=== PATIENT | female | born 1935 | race Caucasian/White ===

== ENCOUNTER → 2018-11-05 | Outpatient (CLI) | payer MEDICARE, BC ==
[~2018-11-05] MED LIST: ASPI-225 PO; COUM2.5T17 PO; K-TA10TA2 PO; LOSA50TA5 PO; MULTCAP PO; OMEP20CA3 PO; PERC5TAB12 PO; REST0.05 OP; TYLE325T5 PO
--- NOTE | 2018-11-05 09:20 | REPMRS ---
Patient History The patient states she had a clinical breast exam in 11/14 Family history of breast cancer at age 50 or over in sister. Benign core biopsy of the right breast, 2006. Digital Woman Screen Mammo: November 05, 2018 - Exam #: [id number] Bilateral CC and MLO view(s) were taken. Technologist: Roxy Foster, Technologist Prior study comparison: August 08, 2017, digital woman screen mammo performed at [facility]. July 05, 2016, digital woman screen mammo performed at [facility]. July 04, 2015, digital woman screen mammo performed at [facility]. FINDINGS: There are scattered fibroglandular densities. There are several stable benign nodules bilaterally. There is a 7 mm nodule in the left breast at the 12 o'clock position which appears larger today than on previous mammography. This merits further evaluation. There has been no other change in the appearance of the mammogram from the prior studies. There is a mild amount of scattered fibroglandular density which is fairly symmetric. There is no other interval development of dominant mass, architectural distortion, or clustered microcalcification suggestive of malignancy. 3-D tomosynthesis shows no additional findings. Assessment: BI-RADS/ACR category 0 mammogram, incomplete. BIRADS/ACR category zero mammogram, incomplete. Additional imaging and/or prior images needed. Recommendation Ultrasound and special view mammogram of the left breast. This patient's Lifetime Breast Cancer RIsk is estimated at 2.0 %. This mammogram was interpreted with the aid of an FDA-approved computer-aided dectection system. Electronically Signed By: Sinan Cope MD 11/05/18 [id number]
== END ==
LOC: M WHC 08:06
PROVIDERS: ATTEND Nurse Practitioner Family
DX: Z01.419 Encounter for gynecological examination (general) (routine) without abnormal findings (principal); Z12.31 Encounter for screening mammogram for malignant neoplasm of breast; N63.20 Unspecified lump in the left breast, unspecified quadrant; Z80.3 Family history of malignant neoplasm of breast; Z86.018 Personal history of other benign neoplasm
CPT/HCPCS: 77063; 77067; G0101

== ENCOUNTER → 2018-11-10 | Outpatient (CLI) | payer MEDICARE, BC ==
--- NOTE | 2018-11-10 17:38 | REP ---
Digital diagnostic unilateral left breast mammography with CAD and focused left breast sonography: History: Screening mammography from 11/05/2018 was BIRADS category zero because of a possible enlarging nodule at 12 o'clock in the left breast. Diagnostic imaging was recommended. Comparison is also made with prior mammography from August 08, 2017 and July 05, 2016. Mammographic findings: Magnified focal spot compression CC, MLO, and true MLO views confirm the presence of a nodule. It is well circumscribed. On diagnostic mammographically magnified focal spot images, the nodule measures 6 mm. This is its dimension on July 2017 and June 2016. Thus there is no evidence that it has enlarged. No other mammographic abnormality is seen. There is a benign stable nodule inferiorly at approximately 6-7 o'clock which is also unchanged. Sonographic findings: Focused left breast sonography is performed from 12 o'clock to 3 o'clock. At 12 o'clock there is a hypoechoic benign appearing nodule 5 x 5 x 4 mm located 5.7 cm from the nipple. This may correspond to the mammographic opacity. Impression: Today's diagnostic imaging demonstrates that the nodule is in fact stable and therefore felt to be benign. BIRADS category II benign findings. Repeat screening mammography recommended bilaterally in 1 year. This mammogram was interpreted with the aid of an FDA-approved computer-aided detection system. The patient states she had a clinical breast exam in October 2018. The patient letter being requested is M1. Electronically Signed by Nathaniel Cope MD 11/10/2018 06:17 P
== END ==
LOC: M RAD 11:20
PROVIDERS: ATTEND Nurse Practitioner Family
DX: N63.0 Unspecified lump in unspecified breast (principal)

== ENCOUNTER → 2019-11-08 | Outpatient (CLI) | payer MEDICARE, BC ==
[~2019-11-08] MED LIST changes: -ASPI-225 PO; +ASPI81TA78 PO; +OMEP1CAP73 PO; -OMEP20CA3 PO
--- NOTE | 2019-11-08 09:35 | REPMRS ---
Patient History The patient states she had a clinical breast exam in October 2019.Family history of breast cancer at age 50 or over in sister. Benign core biopsy of the right breast, 2007. Digital Woman Screen Mammo: November 08, 2019 - Exam #: [id number] Bilateral CC and MLO view(s) were taken. Technologist: Vianey Carrera, Technologist Prior study comparison: November 10, 2018, left breast digital mammo diagnostic unilateral, performed at [facility]. November 05, 2018, bilateral digital woman screen mammo performed at [facility]. August 08, 2017, digital woman screen mammo performed at [facility]. July 05, 2016, digital woman screen mammo performed at [facility]. July 04, 2015, digital woman screen mammo performed at [facility]. July 01, 2014, digital woman screen mammo performed at [facility]. FINDINGS: There are scattered fibroglandular densities. There are stable nodular densities projecting bilaterally unchanged from multiple prior studies. In the left breast, at approximately the 12/01 o'clock position, there is a 7-8 mm nodule adjacent to some fibroglandular tissue. This may have enlarged since the prior study in short axis dimension. It merits further evaluation. There has been no other change in the appearance of the mammogram from the prior studies. There is a mild amount of scattered fibroglandular density which is fairly symmetric. There is no other interval development of dominant mass, architectural distortion, or grouped microcalcification suggestive of malignancy. 3-D tomosynthesis shows no additional findings. Assessment: BI-RADS/ACR category 0 mammogram, Incomplete: Need additional imaging evaluation and/or prior mammograms for comparison. Recommendation Ultrasound and special view mammogram of the left breast (for women over age 40). This patient's Lifetime Breast Cancer Risk is estimated at 1.5 %. This mammogram was interpreted with the aid of an FDA-approved computer-aided dectection system. Electronically Signed By: Sinan Cope MD 11/08/19 0934
== END ==
LOC: M WHC 08:28
PROVIDERS: ATTEND Nurse Practitioner Family
DX: Z12.31 Encounter for screening mammogram for malignant neoplasm of breast (principal); Z80.3 Family history of malignant neoplasm of breast; Z86.018 Personal history of other benign neoplasm; N63.21 Unspecified lump in the left breast, upper outer quadrant
CPT/HCPCS: 77063; 77067; G0463

== ENCOUNTER → 2019-11-15 | Outpatient (CLI) | payer MEDICARE, BC ==
--- NOTE | 2019-11-15 16:41 | REP ---
Digital diagnostic unilateral left breast mammography with CAD and focused left breast sonography: History: Screening mammography from November 08, 2019 was BIRADS category zero because of a 7 mm nodular opacity in the upper outer quadrant. Diagnostic imaging was recommended. Comparison is made with 11/10/2018 and 11/05/2018 prior studies as well as more remote prior exams from 2014 and 2016. Mammographic findings: Magnified focal spot compression images demonstrate a well-circumscribed oval-shaped nodular opacity in the upper outer quadrant of the left breast. This measures 7 millimeters in greatest diameter. This corresponds to the nodular density seen on 11/05/2018. Sonographic findings: At 12 o'clock in the left breast there is a oval-shaped lesion with internal echoes measuring 6.5 x 5.1 x 4.1 mm today. This measured 5 mm previously. A somewhat micronodular margins. Impression: BIRADS category four suspicious left breast imaging. Ultrasound-guided needle biopsy with marker clip placement and post clip placement mammography recommended. BIRADS 4: BI-RADS/ACR category 4 mammogram. Suspicious Abnormality - biopsy should be considered. This mammogram was interpreted with the aid of an FDA-approved computer-aided detection system. The patient states she had a clinical breast exam in October 2019 The patient letter being requested is m4. Electronically Signed by Nathaniel Cope MD 11/15/2019 07:51 P
== END ==
LOC: M RAD 12:56
PROVIDERS: ATTEND Nurse Practitioner Family
DX: Z12.31 Encounter for screening mammogram for malignant neoplasm of breast (principal); N64.89 Other specified disorders of breast

== ENCOUNTER → 2019-12-10 | Outpatient (CLI) | payer MEDICARE, BC ==
[~2019-12-10] MED LIST changes: +METF500T13 PO
[2019-12-10 11:19] VITALS: BP 158/88
--- NOTE | 2019-12-10 12:27 | REP ---
Digital diagnostic unilateral left breast mammography: Two views with CAD. History: Marker clip placement views. The patient is status post ultrasound-guided needle biopsy procedure. Comparison mammography November 15, 2019 and accompanying ultrasound showed a nodule. Mammographic findings: Craniocaudal and true mediolateral views of the left breast demonstrate a needle biopsy marker clip in the upper outer quadrant of the left breast at the site where recent mammography showed a nodular opacity. The nodular opacity is no longer seen. Impression: Marker clip in good position. This mammogram was interpreted with the aid of an FDA-approved computer-aided detection system.
--- NOTE | 2019-12-10 14:09 | REP ---
ULTRASOUND GUIDANCE LEFT BREAST: HISTORY: Ultrasound-guided left breast biopsy. FINDINGS: Sonographic guidance is provided to Dr. Gillespie who performed ultrasound-guided needle biopsy procedure.
--- NOTE | 2019-12-11 20:34 | ROOPDOC ---
[facility] Report Of Operation Report of Operation DATE OF PROCEDURE: 12/10/19 PREPROCEDURE DIAGNOSES: left breast mass POSTPROCEDURE DIAGNOSES: left breast mass PROCEDURE: ultrasound guided left breast biopsy with clip placement SURGEON: Gaye Hanna CLOTH DESIZING RANGE OPERATOR CHIEF: ANESTHESIA: local ESTIMATED BLOOD LOSS: Approximately 1 mL. COMPLICATIONS: none REMARKS: clip found in the left breast at the expected position DESCRIPTION OF PROCEDURE: Lidocaine 1% LOT [id number] Expiration February 2023 Sodium Bicarbonate 8.4% LOT [id number] Expiration June 2021 Hydromark clip LOT [id number] Expiration April 2022 REF 4009-12-11-T4 titanium Shape 4 ( closed coil) Bx device: BARD [id number] x10 cm LOT [id number] Expiration July 2022 REF MQ [id number] Informed consent was obtained in the preop area. The most common risk and possible complications including bleeding, hematoma, bruising, infection, injury to surrounding structures were explained to the patient and she expressed u nderstanding. Patient was taken to the procedure room and placed on the bed in the supine position with the left upper extremity placed above the head. Appropriate time out was done stating patients name, date of , and the procedure to be performed. The left breast was prepped and draped in the usual fashion. The ultrasound was used to confirm the location of the lesion in the left breast at 12:00. Plain Lidocaine 1% and 8.4% sodium bicarbonate 10:1 mix was used to numb the skin, the biopsy site and tissues along the anticipated biopsy tract. Small skin incision was made with blade number 11. BARD Marquee 14G cannula with i ntroducer ([id number]) was inserted through the incision and advanced under the ultrasound guidance to position immediately adjacent to the lesion. Next, the introducer was removed and BARD Marquee 14G biopsy device was places in the cannula. Pre-biopsy imaging, and post-biopsy imaging were captured. Five good core biopsies were taken at various levels of the lesion. Next, the biopsy device was withdrawn and a clip introducer was inserted into the biopsy site via the cannula. The Hydromark clip was deployed under direct vision. Post-clip placement image was captured. Manual pressure over the biopsy cavity and tract was held after the clip introducer was withdrawn. No bleeding was noted upon removal of the pressure. Post-biopsy mammogram of the left breast was obtained and showed clip in expected position. Postprocedural dressing was placed. Patient tolerated procedure well and was taken to the recovery unit in stable condition. Discharge instructions were discussed with the patient and she expressed understanding. GAYE HANNA DO Dec 11, 2019 20:33
== END ==
LOC: M WHCPRO 09:59
PROVIDERS: ATTEND Surgery
DX: D05.12 Intraductal carcinoma in situ of left breast (principal)

== ENCOUNTER → 2019-12-20 | Outpatient (CLI) | payer MEDICARE, BC ==
[2019-12-20 12:11] LABS: BLOOD UREA NITROGEN 14 MG/DL (7-18); CALCIUM LEVEL 9.9 MG/DL (8.8-10.2); CARBON DIOXIDE LEVEL 34 MEQ/L (21-32); CHLORIDE LEVEL 101 MEQ/L (98-107); CREATININE FOR GFR 0.84 MG/DL (0.55-1.30); GLOMERULAR FILTRATION RATE > 60.0 (>32); GLUCOSE, FASTING 128 MG/DL (70-100); SODIUM LEVEL 139 MEQ/L (136-145)
== END ==
LOC: M PLALAB 08:28
PROVIDERS: ATTEND Surgery
DX: C50.912 Malignant neoplasm of unspecified site of left female breast (principal)

== ENCOUNTER → 2019-12-24 | Outpatient (CLI) | payer MEDICARE, BC ==
[~2019-12-24] MED LIST changes: +PROHANCE 279.3MG/ML 15ML VIAL (A9576) As Ordered ONE
--- NOTE | 2019-12-24 18:39 | REP ---
MRI BILATERAL BREASTS WITH AND WITHOUT CONTRAST: HISTORY: Left infiltrating ductal carcinoma. Biopsy performed 12/10/2019. COMPARISON: Mammogram 11/08/2019, 11/15/2019 and ultrasound 11/15/2019. Multiple sequence were obtained in the axial, coronal and sagittal planes prior to and following the intravenous administration of 15 mL ProHance. Images are evaluated in the TargetX software including dynamic post gadolinium axial T1 FS images, subtraction images, CAD images, color overlay images and MIP reconstruction images. Mild fibroglandular tissue is seen bilaterally. There is mild background parenchymal enhancement. There is no axillary adenopathy. There is a cyst in the lower outer right breast which is oval in shape measuring about 1.3 cm in maximum diameter. In the upper outer quadrant of the right breast, anteriorly, there is a hyperintense nodule 1.5 cm in diameter which demonstrates mild persistent enhancement and appears to represent a fibroadenoma. There are nonenhancing internal septations. In the left breast the biopsy clip from the recent biopsy is visualized with mild amount of adjacent post biopsy fluid. At that location, there is focal suspicious washout type enhancement, with a nodular focus of enhancement measuring approximately 6 to 7 mm in diameter. No other suspicious area of enhancement is seen. There is no other suspicious enhancing mass or morphologic abnormality. Subcentimeter hyperintense focus in the left dome of the liver probably represents a small cyst. IMPRESSION: BI-RADS category 6 known left breast cancer. In the upper left breast at the site of the recent ultrasound guided biopsy there is focal suspicious enhancement having a diameter of 6 mm with an adjacent biopsy clip. There is also mild surrounding post biopsy fluid. The lesion is located approximately 6 cm from the nipple. No axillary adenopathy. In the right breast, there is a benign cyst and fibroadenoma identified as discussed above. Electronically Signed by Yordan Chinchilla MD 12/24/2019 07:16 P
== END ==
LOC: M RAD 14:16
PROVIDERS: ATTEND Surgery
DX: C50.212 Malignant neoplasm of upper-inner quadrant of left female breast (principal)
CPT/HCPCS: A9576; C8908

== ENCOUNTER → 2019-12-31 | Outpatient (CLI) | payer MEDICARE, BC ==
[~2019-12-31] MED LIST changes: +METF750T36 PO; -PROHANCE 279.3MG/ML 15ML VIAL (A9576) As Ordered ONE; +VITA500079 PO
== END ==
LOC: M PLALAB 09:07
PROVIDERS: ATTEND Surgery
DX: Z13.79 Encounter for other screening for genetic and chromosomal anomalies (principal)

== ENCOUNTER → 2020-01-06 | Outpatient (CLI) | payer MEDICARE, BC ==
[~2020-01-06] MED LIST changes: +TRAM50TA2 PO
--- NOTE | 2020-01-06 12:58 | REP ---
PA and lateral chest: Comparison is 03/02/2015. The lung lal are clear. The cardiac size is normal. The enrique, mediastinum, and skeletal structures are unremarkable. There are surgical clips in the abdominal right upper quadrant, unchanged. Impression: Negative PA and lateral chest. There is no interval change. Electronically Signed by Yordan Cuellar MD 01/06/2020 12:49 P
== END ==
LOC: M WUC 11:15
PROVIDERS: ATTEND Internal Medicine
DX: Z85.3 Personal history of malignant neoplasm of breast (principal)

== ENCOUNTER 2020-01-10 08:41 | Day surgery (SDC) | payer MEDICARE, BC ==
[~2020-01-10] VITALS: Ht 149.9 cm; Wt 79.4 kg
[~2020-01-10 08:41] MED LIST changes: +HEPARIN SOD (PORCINE) 5000 UNITS/ML VIAL (J1644 PER 1000UNITS) SQ ONE; +LIDOCAINE 1% MDV 20ML VIAL SQ PRN; +LIDOCAINE 2% INJ 100 MG/5 ML SDV (FOR ANES.) As Ordered ONE; +LIDOCAINE 5% (LIDODERM) PATCH TD ONE; +LR 1,000 ML IV ONE; +MIDAZOLAM INJ 2 MG/2 ML VIAL (J2250) As Ordered ONE; +ROCURONIUM BROMIDE 50 MG/5 ML VIAL As Ordered ONE; -TRAM50TA2 PO; +ceFAZolin SOD 2 GM in IV 1 EA IV ONE; +fentaNYL 100 MCG/2 ML INJECTION (J3010) As Ordered ONE; +propofoL 200 MG/20 ML VIAL As Ordered ONE
[2020-01-10] MEDS ORDERED: BUPIVACAINE HCL 0.25% 30 ML VIAL As Ordered ONE (08:46)
[2020-01-10] MEDS ORDERED: LIDOCAINE 1% SDV INJ 30 ML VIAL As Ordered ONE (08:46)
[2020-01-10] MEDS ORDERED: METHYLENE BLUE 0.5% (5MG/ML) 10 ML AMP (PROVAYBLUE)(Q9968 PER 1MG) As Ordered ONE (12:22)
[2020-01-10] MEDS ORDERED: SCOPOLAMINE 1MG TRANSDERMAL PATCH TOP ONE (12:30)
[2020-01-10] MEDS ORDERED: ONDANSETRON 4MG/2ML VIAL (J2405) As Ordered ONE (13:28)
[2020-01-10] MEDS ORDERED: METOCLOPRAMIDE INJ 10MG/2ML VIAL (J2765) As Ordered ONE (13:28)
[2020-01-10] MEDS ORDERED: KETOROLAC 60 MG/2 ML VIAL (J1885) As Ordered ONE (13:28)
[2020-01-10] MEDS ORDERED: ACETAMINOPHEN 1000MG 100ML IV BTL (OFIRMEV) (J0131 PER 10MG) As Ordered ONE (13:29)
[2020-01-10] MEDS ORDERED: SUGAMMADEX SODIUM 500 MG/5 ML VIAL (BRIDION) As Ordered ONE (13:30)
--- NOTE | 2020-01-10 13:46 | REP ---
Breast ultrasound: Left sided sonographic guidance. History: Needle localization. Left breast malignancy. Findings: Sonographic guidance is provided to Dr. Geneva sung performed ultrasound-guided needle localization procedure. Electronically Signed by Nathaniel Cope MD 01/10/2020 01:37 P
[2020-01-10] MEDS ORDERED: fentaNYL 100 MCG/2 ML INJECTION (J3010) As Ordered ONE (14:07)
[2020-01-10] MEDS ORDERED: HYDROmorphone HCL 2 MG/ML 1ML VIAL (J1170) As Ordered ONE (15:01)
[2020-01-10] MEDS ORDERED: PHENYLephrine HCL 500 MCG/5 ML (100MCG/ML) SYRINGE (J2370) As Ordered ONE (15:13)
[2020-01-10] MEDS ORDERED: TRAM50TA2 PO (16:43)
[2020-01-10] MEDS ORDERED: ONDANSETRON 4MG/2ML VIAL (J2405) IV PRN (17:00)
[2020-01-10] MEDS ORDERED: LR 1,000 ML IV SCH (17:00)
[2020-01-10] MEDS ORDERED: fentaNYL 100 MCG/2 ML INJECTION (J3010) IV PRN (17:00)
--- NOTE | 2020-01-10 18:14 | REP ---
LEFT BREAST LYMPHOSCINTIGRAPHY The procedure was performed under the direct supervision of Dr. Chinchilla. The images were reviewed with Dr. Chinchilla. The risks and benefits of the procedure were explained to the patient and informed consent was obtained. Using topical anesthetic and sterile technique 1.018 mCi of technetium 99 filtered sulfur colloid was injected subdermally and eight fractionated periareolar injections. Images obtained 1 hour after injection demonstrate dominant left axillary focus with a smaller adjacent focus more medially. Impression: Left breast lymphoscintigraphy. Dominant left axillary focus with a smaller adjacent focus more medially. Electronically Signed by ANA Sandoval 01/10/2020 05:37 P Electronically Signed by Yordan Chinchilla MD 01/10/2020 06:05 P
[2020-01-10 18:15] VITALS: BP 133/67
--- NOTE | 2020-01-10 21:41 | ROOPDOC ---
[facility] Report Of Operation Report of Operation DATE OF PROCEDURE: 01/10/20 PREPROCEDURE DIAGNOSES: Left breast cancer POSTPROCEDURE DIAGNOSES: Left breast cancer PROCEDURE: Left lumpectomy with Intra-Op wire placement and left sentinel lymph node biopsy SURGEON: Gaye Gillespie MILK COLLECTOR: ANESTHESIA: General ESTIMATED BLOOD LOSS: Approximately 10 mL. COMPLICATIONS: None REMARKS: The wire and the hydro-marked clip are visible in the specimen DESCRIPTION OF PROCEDURE: INDICATIONS: Ms. Driscoll is a 84-year-old woman who was found to have suspicious mass on screening left breast mammogram. This was evaluated with US and sonographic correlate was found. 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 She opted for breast conservative surgery with sentinel lymph node biopsy on the left. She was medically cleared for surgery by her primary care doctor. Risks and possible complications of surgical procedure including bleeding, infection and injury to surrounding structures were explained to the patient and she wished to proceed. Consent was signed. My initials were placed on the operative site (left). Since patient has an active diagnosis of cancer, subcutaneous injection of 5000 units of heparin was done in Preop. The injection of radioactive tracer were done in radiology department preoperatively. Lymphoscintigraphy imaging was reviewed in preop. DETAILS: Patient was taken to the operating room and placed on the operating room table. A sign in was called stating patients name, date of and the procedure to be done. Preoperative antibiotics were infused. Smooth induction of general anesthesia was done. Patients hands were extended on arm rests. Care was taken not to over extend the arms. Procedure was started with left breast intraop wire localization. Appropriate time out was done and patients name, date of , and the procedure to be done were confirmed. Left breast was cleaned by me. Intraoperative ultrasound was used again to confirm location of the Hydromark clip. Location of the clip was marked on the skin as well. 21 G Kopans Breast Lesion Localization Needle was used to place 25 cm wire through the lesion. The wire was placed through the clip and the end of the wire was passed a centimeter deep. The images were captured confirming adequate placement of the localizing wire. Audit Senior Associate assisted with the wire placement. Next, patients left breast and axilla were prepped and draped in the usual fashion. Care was taken not to displace the wire. Appropriate time out was done again prior second part of the procedure. Patients name, date of , and the procedure to be done were confirmed. Procedure was started with sentinel lymph node biopsy. Neoprobe was used to locate area of maximum intensity of the signal. Local anesthetic using 1% lidocaine and 0.25 % Marcaine 50/50 mix was injected. An incision was made with scalpel number 15 at the inferior aspect of axillary hair line in the left axilla where the maximum signal was identified. The sharp and blunt dissection was continued through the subcutaneous adipose tissue. Clavipectoral fascia was opened. Neoprobe was used to guide the dissection. First sentinel lymph node was identified and excised. The ex-vivo 10 second count was 4627. There was another node associated with the first sentinel lymph node. This node did not have any signal. It was called a nonsentinel, palpable left axillary lymph node. Second sentinel lymph node was identified and excised as well. The ex- vivo 10 second count was [id number]. The specimens were labeled with patients name and sent to pathology. No additional lymph nodes with high radioactive signal were identified. The 10 second count of the background was 117. Adequate hemostasis was assured. Additional local anesthetic was injected into surrounding tissues. Wound was irrigated. Clavipectoral fascia was closed with 3-0 Vicryl interrupted suture. Dermal layer was closed at the end of the case with 3-0 Monocryl and skin was closed with 4-0 Monocryl. Next, our attention was turned toward the left breast. Local anesthetic using 1% lidocaine and 0.25 % Marcaine 50/50 mix was injected at the site of planned superolateral periareolar incision. The incision was made with the scalpel. Subcutaneous skin flaps were raised and the guide wire was carefully pulled into the wound. Dissection was carries along the wire until the previously marked on the skin area of target lesion location was encountered. At this point, wider excision of the tissue surrounding the wire was done. The Hydromark clip was identified in the tissue with intraoperative hockey stick ultrasound probe. The end of the wire was identified with palpation. The lumpectomy specimen was carefully removed from the breast keeping its proper orientation and moved to the back table where margins were marked with the surgical inking kit following the standard colors recommendations. Specimen was then placed on the grid and placed in [employer] Specimen Imaging System. The image revealed the wire and the Hydromark in the specimen. The specimen was labeled with patients name and left lumpectomy and sent to pathology. At this time radiology department was called to aid with evaluation of excised specimen. No additional excision was recommended. Next, six additional margins were taken: deep, inferior, superior, medial, anterior and lateral. All new margins, defined as margin farthest away from lumpectomy cavity, were marked with black ink. Each margin was sent as a separate specimen with appropriate labeling. Adequate hemostasis was assured. Additional local anesthetic was injected into surrounding tissues. Clips were placed to veronica the cavity. space was approximated with 3-0 Vicryl. The dermis was closed with 3-0 Monocryl and skin was closed with 4-0 Monocryl. Steri strips were placed over the incision. Patient emerged from the anesthesia without any problems. Fluffs were placed over the operative site and patients chest was wrapped snuggly in the MEEK wrap. Sponge and instrument counts were done and were correct. Patient tolerated procedure well and was taken to recovery unit in stable condition. GAYE GILLESPIE DO Jan 10, 2020 21:41
--- NOTE | 2020-01-11 09:59 | REP ---
SPECIMEN RADIOGRAPHY LEFT BREAST: Eight views. Comparison mammography December 10, 2019. FINDINGS: Specimen radiography demonstrates the needle wire localization device immediately adjacent to the HydroMARK biopsy marker clip placed and previously seen at the site of recently biopsied soft tissue nodule. On one of the views, a 14 mm nodular density is seen which may correspond to the nodule itself. This is difficult to say with confidence on specimen radiography. The marker clip was immediately adjacent to the nodule on the December 10, 2019 mammography. IMPRESSION: Findings consistent with successful excision. Electronically Signed by Nathaniel Cope MD 01/11/2020 10:01 A
== END 2020-01-10 18:20 | disposition home or self-care (01) ==
LOC: M SDC 08:41
PROVIDERS: ATTEND Surgery
DX: C50.912 Malignant neoplasm of unspecified site of left female breast (principal); Z17.0 Estrogen receptor positive status [ER+]; E11.9 Type 2 diabetes mellitus without complications; Z79.84 Long term (current) use of oral hypoglycemic drugs; I10 Essential (primary) hypertension; M81.0 Age-related osteoporosis without current pathological fracture; Z79.899 Other long term (current) drug therapy; Z87.891 Personal history of nicotine dependence; E78.00 Pure hypercholesterolemia, unspecified; E66.9 Obesity, unspecified; K21.9 Gastro-esophageal reflux disease without esophagitis; M85.80 Other specified disorders of bone density and structure, unspecified site
CPT/HCPCS: 19125; 36415; 38525; 76098; 76942; 78195; 86850; 86900; 86901; 88305; 88307; A9541; J0131; J0690; J1170; J1644; J2250; J2370; J2405; J2765; J3010

== ENCOUNTER → 2020-04-27 | Outpatient (CLI) | payer MEDICARE, BC ==
[~2020-04-27] MED LIST changes: -HEPARIN SOD (PORCINE) 5000 UNITS/ML VIAL (J1644 PER 1000UNITS) SQ ONE; +LETR2.5T2 PO; -LIDOCAINE 1% MDV 20ML VIAL SQ PRN; -LIDOCAINE 2% INJ 100 MG/5 ML SDV (FOR ANES.) As Ordered ONE; -LIDOCAINE 5% (LIDODERM) PATCH TD ONE; -LR 1,000 ML IV ONE; -MIDAZOLAM INJ 2 MG/2 ML VIAL (J2250) As Ordered ONE; -ROCURONIUM BROMIDE 50 MG/5 ML VIAL As Ordered ONE; +TRAM50TA2 PO; -ceFAZolin SOD 2 GM in IV 1 EA IV ONE; -fentaNYL 100 MCG/2 ML INJECTION (J3010) As Ordered ONE; -propofoL 200 MG/20 ML VIAL As Ordered ONE
--- NOTE | 2020-05-02 11:33 | DEXA ---
AP SPINE L1 - L4 1.190 0.0 1.8 LT FEMUR TOTAL 0.838 -1.3 0.8 LT NECK 0.725 -2.3 0.0 RT FEMUR TOTAL 0.868 -1.1 1.0 RT NECK 0.816 -1.6 0.7 TOTAL BODY TOTAL OTHER COMMENTS: Normal bone densitometry of the spine. There is low bone density of the hips. The increased density of the spine does not represent a significant change. The decreased density of the left hip does represent a significant change. The decreased density of the right hip does not represent a significant change. The density of the spine has increased 8.0% since the initial exam on 02/21/2003. The increased 1.2% since the most recent exam on 07/05/2016. The density of the left hip has decreased 11.9% since initial exam on 02/21/2003. The density of the left hip has decreased 3.1% since the most recent exam on 07/05/2016. The density of the right hip has decreased 5.2% since the initial exam on 02/21/2003. The density of the right hip has decreased 1.1% since the most recent exam on 07/05/2016. FOLLOW-UP: Recommendation for the next bone density exam: 2 years. REHAN
== END ==
LOC: M WHC 10:45
PROVIDERS: ATTEND Internal Medicine Medical Oncology
DX: C50.919 Malignant neoplasm of unspecified site of unspecified female breast (principal); M85.851 Other specified disorders of bone density and structure, right thigh; M85.852 Other specified disorders of bone density and structure, left thigh

== ENCOUNTER → 2020-07-26 | Outpatient (RCR) | payer MEDICARE, BC | END | disposition home or self-care (01) | LOC: M PT 07-20 08:08 | PROVIDERS: ATTEND Surgery | DX: M25.569 Pain in unspecified knee (principal) ==

== ENCOUNTER 2020-08-02 12:31 | Outpatient (RCR) | payer MEDICARE, BC | END 2020-08-26 | LOC: M PT 12:31 | PROVIDERS: ATTEND Surgery | DX: I89.0 Lymphedema, not elsewhere classified (principal) ==

== ENCOUNTER → 2020-11-15 | Outpatient (CLI) | payer MEDICARE, BC ==
[~2020-11-15] MED LIST changes: +ATOR1TAB19 PO; +CALC500C16 PO; +D3400CAP PO; +EYEDRO5 OU; +FOSA70TA PO; +HYDR12.55 PO
--- NOTE | 2020-11-15 09:52 | REPMRS ---
Patient History The patient states she had a clinical breast exam in 10/2020 Family history of breast cancer at age 50 or over in sister. Malignant radio exam breast specimen of the left breast, January 10, 2020. Malignant US guided breast biopsy. of the left breast, December 10, 2019. Benign core biopsy of the right breast, 2006. 3D TOMOSYNTHESIS WAS PERFORMED. Volpara breast density b. Diagnostic Bilateral Mammo: November 15, 2020 - Exam #: [id number] Bilateral CC and MLO view(s) were taken. Technologist: Roxy Foster, Technologist Prior study comparison: December 10, 2019, left breast diagnostic unilateral mammo performed at [facility]. November 15, 2019, left breast digital mammo diagnostic unilateral, performed at [facility]. FINDINGS: There are scattered fibroglandular densities. There is a fairly symmetric fibroglandular pattern in both breasts. There has been no interval development of masses, areas of architectural distortion or clusters of microcalcifications typical of malignancy.Previously noted smoothly marginated nodules in the right breast remains stable. There are new surgical clips in the central aspect of the left breast and upper outer quadrant in the region of the axillary tail. Previously noted nodule in the left upper outer quadrant no longer visualized. Assessment: BI-RADS/ACR category 2 mammogram. Benign Findings. Recommendation Routine screening mammogram of both breasts in 1 year (for women over age 40). This mammogram was interpreted with the aid of an FDA-approved computer-aided dectection system. Electronically Signed By: Yordan Chinchilla MD 11/15/20 0951
== END ==
LOC: M WHC 08:47
PROVIDERS: ATTEND Surgery
DX: N63.10 Unspecified lump in the right breast, unspecified quadrant (principal); Z80.3 Family history of malignant neoplasm of breast; Z85.3 Personal history of malignant neoplasm of breast; Z97.8 Presence of other specified devices
CPT/HCPCS: 77066; G0279

== ENCOUNTER 2021-01-31 08:17 | Outpatient (RCR) | payer MEDICARE, BC ==
[~2021-01-31 08:17] MED LIST changes: +MULT-90 PO
== END 2021-02-23 ==
LOC: M PT 08:17
PROVIDERS: ATTEND Surgery
DX: M25.569 Pain in unspecified knee (principal)

== ENCOUNTER 2021-08-13 08:15 | Outpatient (RCR) | payer MEDICARE, BC | END 2021-08-26 | LOC: M PT 08:15 | PROVIDERS: ATTEND Surgery | DX: I89.0 Lymphedema, not elsewhere classified (principal); Z98.890 Other specified postprocedural states ==

== ENCOUNTER → 2021-11-16 | Outpatient (CLI) | payer MEDICARE, BC | LOC: M WHC 08:53 | PROVIDERS: ATTEND Surgery | DX: C50.312 Malignant neoplasm of lower-inner quadrant of left female breast (principal) | CPT/HCPCS: 77066; G0279 ==

== ENCOUNTER 2022-08-13 08:22 | Outpatient (RCR) | payer MEDICARE, BC ==
[~2022-08-13 08:22] MED LIST changes: +ALEN70TA87 PO; +CEPH500C PO; +COVI100V IM; -FOSA70TA PO
[2022-08-23] MEDS ORDERED: LOSA50TA28 (09:46)
[2022-08-23] MEDS ORDERED: OZEM2INJ (09:46)
[2022-08-23] MEDS ORDERED: CVS-161 PO (09:54)
[2022-08-23] MEDS ORDERED: ALEN70TA87 PO (16:02)
== END 2022-08-26 ==
LOC: M PT 08:22
PROVIDERS: ATTEND Surgery
DX: M25.569 Pain in unspecified knee (principal)

== ENCOUNTER → 2022-08-25 | Outpatient (CLI) | payer MEDICARE, BC ==
[~2022-08-25] MED LIST changes: +CVS-161 PO; +LOSA50TA28; +OZEM2INJ
== END ==
LOC: M LABSMTC 10:38
PROVIDERS: ATTEND Anesthesiology
DX: Z01.818 Encounter for other preprocedural examination (principal); Z11.52 Encounter for screening for COVID-19

== ENCOUNTER 2022-08-27 07:37 | Day surgery (SDC) | payer MEDICARE, BC ==
[~2022-08-27] VITALS: Ht 149.9 cm; Wt 84.8 kg
[~2022-08-27 07:37] MED LIST changes: +ACETYLCHOLINE OPHTH SOLN 1% 2ML (MIOCHOL-E) As Ordered ONE; +BSS IRR 500ML/OMIDRIA 4ML IRR BAG (OR ONLY) As Ordered ONE; +CEFUROXIME 1MG/0.1ML INTRACAMERAL INJ As Ordered ONE; +CYCLOPENTOLATE 1% OPHTH SOLN 2 ML BTL OS SCH; +LIDOCAINE 1% SDV 5ML VIAL As Ordered ONE; +OFLOXACIN 0.3 % (OCUFLOX) OPTH SOL 5ML OS SCH; +PHENYLEPHRINE 2.5% OPHTH SOL 2ML OS SCH; +PROPARACAINE 0.5% OPHTH SOL 15ML OS ONE; +TROPICAMIDE 1% OPHTH SOLN 2ML OS SCH
[2022-08-27] MEDS ORDERED: fentaNYL 100 MCG/2 ML INJECTION As Ordered ONE (09:33)
[2022-08-27] MEDS ORDERED: MIDAZOLAM INJ 2MG/2ML VIAL (J2250 PER 1MG) As Ordered ONE (09:33)
[2022-08-27] MEDS ORDERED: LABETALOL 100MG/20ML VIAL As Ordered ONE (10:27)
[2022-08-27] MEDS ORDERED: TOBRADEX OPHTH OINT 3.5 GM As Ordered ONE (10:39)
[2022-08-27 10:50] VITALS: BP 134/64
== END 2022-08-27 11:12 | disposition home or self-care (01) ==
LOC: M SDC 07:37
PROVIDERS: ATTEND Ophthalmology
DX: H25.12 Age-related nuclear cataract, left eye (principal); I10 Essential (primary) hypertension; E11.9 Type 2 diabetes mellitus without complications; Z79.899 Other long term (current) drug therapy; Z79.84 Long term (current) use of oral hypoglycemic drugs
CPT/HCPCS: 66984; J0697; J1097; J2250; J3010; V2632

== ENCOUNTER → 2022-09-22 | Outpatient (CLI) | payer MEDICARE, BC ==
[~2022-09-22] MED LIST changes: -ACETYLCHOLINE OPHTH SOLN 1% 2ML (MIOCHOL-E) As Ordered ONE; -BSS IRR 500ML/OMIDRIA 4ML IRR BAG (OR ONLY) As Ordered ONE; -CEFUROXIME 1MG/0.1ML INTRACAMERAL INJ As Ordered ONE; -CYCLOPENTOLATE 1% OPHTH SOLN 2 ML BTL OS SCH; -LIDOCAINE 1% SDV 5ML VIAL As Ordered ONE; -OFLOXACIN 0.3 % (OCUFLOX) OPTH SOL 5ML OS SCH; -PHENYLEPHRINE 2.5% OPHTH SOL 2ML OS SCH; -PROPARACAINE 0.5% OPHTH SOL 15ML OS ONE; -TROPICAMIDE 1% OPHTH SOLN 2ML OS SCH
== END ==
LOC: M LABSMTC 10:16
PROVIDERS: ATTEND Anesthesiology
DX: Z01.812 Encounter for preprocedural laboratory examination (principal); Z11.52 Encounter for screening for COVID-19

== ENCOUNTER → 2022-09-29 | Outpatient (CLI) | payer MEDICARE, BC | LOC: M LABSMTC 11:24 | PROVIDERS: ATTEND Anesthesiology | DX: Z01.818 Encounter for other preprocedural examination (principal); Z11.52 Encounter for screening for COVID-19 ==

== ENCOUNTER 2022-10-01 09:31 | Day surgery (SDC) | payer MEDICARE, BC ==
[~2022-10-01] VITALS: Ht 149.9 cm; Wt 83.1 kg
[~2022-10-01 09:31] MED LIST changes: +CEFUROXIME 1MG/0.1ML INTRACAMERAL INJ As Ordered ONE; +CYCLOPENTOLATE 1% OPHTH SOLN 2 ML BTL OD SCH; +LIDOCAINE 1% 1ML PF SYRINGE (OR EYE CASES) As Ordered ONE; +OFLOXACIN 0.3 % (OCUFLOX) OPTH SOL 5ML OD SCH; +PHENYLEPHRINE 2.5% OPHTH SOL 2ML OD SCH; +PROPARACAINE 0.5% OPHTH SOL 15ML OD ONE; +TROPICAMIDE 1% OPHTH SOLN 15ML OD SCH
[2022-10-01] MEDS: TROPICAMIDE 1% OPHTH SOLN 15ML OD SCH ×3 (10:47→10:49)
[2022-10-01] MEDS: CYCLOPENTOLATE 1% OPHTH SOLN 2 ML BTL OD SCH ×3 (10:47→10:49)
[2022-10-01] MEDS: OFLOXACIN 0.3 % (OCUFLOX) OPTH SOL 5ML OD SCH ×3 (10:47→10:49)
[2022-10-01] MEDS: PHENYLEPHRINE 2.5% OPHTH SOL 2ML OD SCH ×3 (10:47→10:49)
[2022-10-01] MEDS ORDERED: MIDAZOLAM INJ 2MG/2ML VIAL (J2250 PER 1MG) As Ordered ONE (11:06)
[2022-10-01] MEDS ORDERED: fentaNYL 100 MCG/2 ML INJECTION As Ordered ONE (11:06)
[2022-10-01 11:21] VITALS: BP 161/78
== END 2022-10-01 11:42 | disposition home or self-care (01) ==
LOC: M SDC 09:31
PROVIDERS: ATTEND Ophthalmology
DX: H25.11 Age-related nuclear cataract, right eye (principal); E11.9 Type 2 diabetes mellitus without complications; I10 Essential (primary) hypertension; E78.5 Hyperlipidemia, unspecified; Z90.89 Acquired absence of other organs; Z90.710 Acquired absence of both cervix and uterus; Z85.3 Personal history of malignant neoplasm of breast; Z79.84 Long term (current) use of oral hypoglycemic drugs; Z79.899 Other long term (current) drug therapy; Z87.891 Personal history of nicotine dependence
CPT/HCPCS: 66984; J0697; J2250; J3010; V2632

== ENCOUNTER → 2022-11-20 | Outpatient (CLI) | payer MEDICARE, BC ==
[~2022-11-20] MED LIST changes: -CEFUROXIME 1MG/0.1ML INTRACAMERAL INJ As Ordered ONE; -CYCLOPENTOLATE 1% OPHTH SOLN 2 ML BTL OD SCH; -LIDOCAINE 1% 1ML PF SYRINGE (OR EYE CASES) As Ordered ONE; -OFLOXACIN 0.3 % (OCUFLOX) OPTH SOL 5ML OD SCH; -PHENYLEPHRINE 2.5% OPHTH SOL 2ML OD SCH; -PROPARACAINE 0.5% OPHTH SOL 15ML OD ONE; -TROPICAMIDE 1% OPHTH SOLN 15ML OD SCH
== END ==
LOC: M WHC 08:30
PROVIDERS: ATTEND Internal Medicine
DX: Z12.31 Encounter for screening mammogram for malignant neoplasm of breast (principal); M81.0 Age-related osteoporosis without current pathological fracture; Z85.3 Personal history of malignant neoplasm of breast

== ENCOUNTER → 2022-11-22 | Outpatient (CLI) | payer MEDICARE, BC | LOC: M WHC 07:49 | PROVIDERS: ATTEND Internal Medicine | DX: M85.851 Other specified disorders of bone density and structure, right thigh (principal); M85.852 Other specified disorders of bone density and structure, left thigh; C50.912 Malignant neoplasm of unspecified site of left female breast ==

== ENCOUNTER 2023-08-12 09:00 | Outpatient (RCR) | payer MEDICARE, BC ==
[~2023-08-12 09:00] MED LIST changes: +CALCTAB89 PO; -K-TA10TA2 PO; -LOSA50TA28; +LOSA50TA28 PO; +POTA-165 PO; +SEMA0.257 SQ
== END 2023-08-26 ==
LOC: M PT 09:00
PROVIDERS: ATTEND Surgery
DX: M17.12 Unilateral primary osteoarthritis, left knee (principal)

== ENCOUNTER → 2023-11-24 | Outpatient (CLI) | payer MEDICARE, BC ==
[~2023-11-24] MED LIST changes: +CHOL10CA2 PO; -D3400CAP PO
== END ==
LOC: M WHC 13:10
PROVIDERS: ATTEND Nurse Practitioner Women's Health
DX: Z85.3 Personal history of malignant neoplasm of breast (principal)
CPT/HCPCS: 77066; G0279

== ENCOUNTER → 2024-03-01 | Outpatient (CLI) | payer MEDICARE, BC | LOC: M WUC 09:20 | PROVIDERS: ATTEND Nurse Practitioner Family | DX: M54.50 Low back pain, unspecified (principal) ==

== ENCOUNTER 2024-08-12 08:59 | Outpatient (RCR) | payer MEDICARE, BC | END 2024-08-26 | LOC: M PT 08:59 | PROVIDERS: ATTEND Surgery | DX: M25.562 Pain in left knee (principal); M25.561 Pain in right knee; R22.32 Localized swelling, mass and lump, left upper limb ==

== ENCOUNTER → 2024-12-07 | Outpatient (CLI) | payer MEDICARE, BC | LOC: M WHC 12:29 | PROVIDERS: ATTEND Internal Medicine Medical Oncology | DX: Z12.31 Encounter for screening mammogram for malignant neoplasm of breast (principal); M81.0 Age-related osteoporosis without current pathological fracture ==

== ENCOUNTER 2025-05-25 06:42 | Emergency (ER) | payer MEDICARE, BC ==
[2025-05-25 06:54] VITALS: BP 175/72; TEMP 97.7; O2SAT 97
== END 2025-05-25 08:59 | disposition home or self-care (01) ==
LOC: M ED 06:42 → EDBD 06:42 → M ED 08:59
DX: S83.92XA Sprain of unspecified site of left knee, initial encounter (principal); S93.402A Sprain of unspecified ligament of left ankle, initial encounter; Y92.019 Unspecified place in single-family (private) house as the place of occurrence of the external cause; Y93.9 Activity, unspecified; Y99.9 Unspecified external cause status; W01.198A Fall on same level from slipping, tripping and stumbling with subsequent striking against other object, initial encounter; Z79.84 Long term (current) use of oral hypoglycemic drugs; Z79.899 Other long term (current) drug therapy; Z79.810 Long term (current) use of selective estrogen receptor modulators (SERMs)